=== PATIENT | female | born 1990 | race Caucasian/White ===

== ENCOUNTER 2017-05-21 20:39 | Emergency (ER) | payer BC ==
[~2017-05-21] VITALS: Ht 162.6 cm; Wt 56.8 kg
[2017-05-21 20:40] VITALS: BP 133/81
[2017-05-21] MEDS ORDERED: predniSONE 20 MG TAB PO ONE (22:30)
[2017-05-21] MEDS ORDERED: ALBUTEROL 90 MCG/ACT 8GM HFA INHALER INH ONE (22:30)
[2017-05-21] MEDS ORDERED: ALBUTEROL SULFATE 2.5 MG/0.5 ML INH NEB SOLN NEB ONE (22:30)
[2017-05-21] MEDS ORDERED: ALBU17IN INH (23:18)
[2017-05-21] MEDS ORDERED: ALBU83IN INH (23:18)
[2017-05-21] MEDS ORDERED: PRED20TA PO (23:18)
== END 2017-05-21 23:29 | disposition home or self-care (01) ==
LOC: M ED 20:39
DX: J45.901 Unspecified asthma with (acute) exacerbation (principal); F17.210 Nicotine dependence, cigarettes, uncomplicated; Z88.0 Allergy status to penicillin

== ENCOUNTER 2017-06-09 00:33 | Emergency (ER) | payer BC ==
[~2017-06-09] VITALS: Ht 165.1 cm; Wt 54.5 kg
[~2017-06-09 00:33] MED LIST: ALBU17IN INH; ALBU83IN INH; PRED20TA PO
[2017-06-09] MEDS ORDERED: methylPREDNISolone INJ 125 MG/2 ML VIAL (J2930) IM ONE (01:30)
[2017-06-09] MEDS ORDERED: PRED20TA PO (01:57)
[2017-06-09 02:02] VITALS: O2SAT 96
[2017-06-09] MEDS: IPRATROPIUM 0.5MG/ALBUTEROL 2.5MG INH SOL UD 3ML (DUONEB)(J7620) NEB SCH ×2 (02:02→03:04)
[2017-06-09 02:54] VITALS: BP 135/79
--- NOTE | 2017-06-09 07:54 | REP ---
Portable chest, single AP view, the patient sitting, 01:52 a.m.: There are no comparisons. The lung whitney are clear. The cardiac size is normal. The anthony, mediastinum, and bony thorax are unremarkable. Impression: Negative portable chest. Signed by Mirza Yin MD 06/09/2017 07:45 A
== END 2017-06-09 03:26 | disposition home or self-care (01) ==
LOC: M ED 00:33
DX: J45.909 Unspecified asthma, uncomplicated (principal); Z88.0 Allergy status to penicillin
CPT/HCPCS: 71010; 94640; 96372; 99283; J2930

== ENCOUNTER 2017-06-23 20:21 | Emergency (ER) | payer BC ==
[~2017-06-23] VITALS: Ht 162.6 cm; Wt 54.5 kg
[2017-06-23] MEDS ORDERED: HYDR-3713 (20:27)
[2017-06-23] MEDS ORDERED: predniSONE 20 MG TAB PO ONE (23:15)
[2017-06-23] MEDS: IPRATROPIUM 0.5MG/ALBUTEROL 2.5MG INH SOL UD 3ML (DUONEB)(J7620) NEB SCH ×2 (23:34→23:47)
[2017-06-23] MEDS ORDERED: ADV250INH INH (23:53)
[2017-06-23] MEDS ORDERED: PRED20TA PO (23:53)
[2017-06-24 00:29] VITALS: BP 129/73
[2017-06-24] MEDS ORDERED: ALBU17IN INH (00:33)
== END 2017-06-24 00:57 | disposition home or self-care (01) ==
LOC: M ED 20:21
DX: J45.901 Unspecified asthma with (acute) exacerbation (principal); Z88.0 Allergy status to penicillin; Z87.891 Personal history of nicotine dependence